=== PATIENT | male | born 1990 | race African-American/Black ===

== ENCOUNTER 2023-03-30 14:10 | Emergency (ER) | payer MEDICAID ==
[~2023-03-30] VITALS: Ht 193 cm; Wt 117.9 kg
[2023-03-30 14:34] VITALS: O2SAT 100
[2023-03-30] MEDS ORDERED: TETRACAINE 0.5% OPHTH DROPS 4ML RIGHTEYE ONE (16:00)
[2023-03-30] MEDS ORDERED: FLUORESCEIN SODIUM 1MG/STRIP EACHEYE ONE (17:00)
[2023-03-30] MEDS ORDERED: ERYT1OIN6 EACHEYE (17:05)
[2023-03-30 19:23] VITALS: BP 111/70; PULSE 70; RESP 16; TEMP 98.5
== END 2023-03-30 19:24 | disposition home or self-care (01) ==
LOC: ER 17:13
DX: H10.9 Unspecified conjunctivitis (principal)
CPT/HCPCS: 99283